=== PATIENT | female | born 1935 | race Caucasian/White ===

== ENCOUNTER 2018-05-11 21:33 | Inpatient (IN) | payer MEDICARE, OTHER ==
[2018-05-11 22:15] LABS: ADD MAN DIFF? NO
[2018-05-11 22:21] LABS: ABNORMAL IP MESSAGE 1; BASOPHILS % 0.2 % (0.0-2.0); HEMATOCRIT 34.2 % (37.0-47.0); HEMOGLOBIN 11.5 g/dl (12.0-16.0); LYMPHOCYTES # 0.6 10^3/ul (0.8-2.9); LYMPHOCYTES % 4.4 % (15.0-51.0); MEAN CORPUSCULAR HEMOGLOBIN 31.2 pg (29.0-33.0); MEAN CORPUSCULAR HGB CONC 33.6 g/dl (32.0-37.0); MEAN CORPUSCULAR VOLUME 92.7 fl (82.0-101.0); MEAN PLATELET VOLUME 9.7 fl (7.4-10.4); MONOCYTE # 0.4 10^3/ul (0.3-0.9); MONOCYTES % 3.1 % (0.0-11.0); NEUTROPHIL # 11.5 10^3/ul (1.6-7.5); NEUTROPHILS % 91.4 % (39.0-77.0); PLATELET COUNT 235 10^3/UL (140-415); RED BLOOD COUNT 3.69 10^6/ul (4.20-5.40); RED CELL DISTRIBUTION WIDTH 13.7 % (11.5-14.5)
[2018-05-11 22:21] LABS: WHITE BLOOD COUNT 12.6 10^3/ul (4.8-10.8)
[2018-05-11] MEDS ORDERED: ACETAMINOPHEN 325 MG TAB (22:26)
[2018-05-11 22:29] LABS: POSITIVE DIFF @See below
[2018-05-11] MEDS: ONDANSETRON 4 MG INJ IV (22:33)
[2018-05-11] MEDS: LACTATED RINGER'S 1,000 ML IV (22:34)
[2018-05-11] MEDS: ACETAMINOPHEN 325 MG TAB PO (22:37)
[2018-05-11 22:44] LABS: ALANINE AMINOTRANSFERASE 26 IU/L (13-69); ALBUMIN 3.5 g/dl (3.3-4.9); ALBUMIN/GLOBULIN RATIO 1.16; ALKALINE PHOSPHATASE 59 IU/L (42-121); ANION GAP 14 (8-16); ASPARTATE AMINO TRANSFERASE 28 IU/L (15-46); BLOOD UREA NITROGEN 17 mg/dl (7-20); CALCIUM 8.9 mg/dl (8.4-10.2); CARBON DIOXIDE 27 mmol/L (21-31); CHLORIDE 94 mmol/L (97-110); CREATININE 0.65 mg/dl (0.44-1.00); GLUCOSE 171 mg/dl (70-220); POTASSIUM 4.2 mmol/L (3.5-5.1); SODIUM 131 mmol/L (135-144); TOTAL PROTEIN 6.5 g/dl (6.1-8.1)
[2018-05-11 22:53] LABS: TROPONIN-I 0.029 ng/ml (0.000-0.120)
[2018-05-11 23:08] LABS: LACTIC ACID 3.3 mmol/L (0.5-2.0)
[2018-05-11] MEDS: SODIUM CHLORIDE 0.9% 1L BAG IV* (23:43)
[2018-05-11] MEDS: CEFEPIME 2GM/50 ML (PMX) 50 ML IVPB (23:45)
[2018-05-11] MEDS: VANCOMYCIN 1 GM (PMX) 250 ML IVPB (23:45)
[2018-05-12 00:17] LABS: LACTIC ACID 1.6 mmol/L (0.5-2.0)
[2018-05-12 00:41] LABS: ADD UMIC NO; UR ASCORBIC ACID NEGATIVE (NEGATIVE); UR BILIRUBIN (Dip) NEGATIVE (NEGATIVE); UR BLOOD (Dip) NEGATIVE (NEGATIVE); UR CLARITY CLEAR (CLEAR); UR COLOR YELLOW (YELLOW); UR GLUCOSE (Dip) NEGATIVE (NEGATIVE); UR KETONES (Dip) NEGATIVE (NEGATIVE); UR LEUKOCYTE ESTERASE (Dip) NEGATIVE Leu/ul (NEGATIVE); UR NITRITE (Dip) NEGATIVE (NEGATIVE); UR SPECIFIC GRAVITY (Dip) 1.015 (1.003-1.030); UR TOTAL PROTEIN (Dip) NEGATIVE (NEGATIVE); UR UROBILINOGEN (Dip) 2+ mg/dL (NEGATIVE)
[2018-05-12] MEDS ORDERED: NACL 0.9% 3 ML SYG IV (05:30)
[2018-05-12] MEDS ORDERED: VANCOMYCIN IV PER PHARMACY XX (05:30)
[2018-05-12] MEDS: HYDROCODONE/APAP (5/325) TAB PO ×2 (05:49→20:25)
[2018-05-12] MEDS: ALBUTEROL/IPRATROPIUM (NEB) 3 ML AMP HHN ×2 (06:11→21:08)
[2018-05-12 06:36] LABS: ADD MAN DIFF? NO
[2018-05-12 06:39] LABS: ABNORMAL IP MESSAGE 1; BASOPHILS % 0.3 % (0.0-2.0); HEMATOCRIT 30.8 % (37.0-47.0); HEMOGLOBIN 10.3 g/dl (12.0-16.0); LYMPHOCYTES # 0.5 10^3/ul (0.8-2.9); LYMPHOCYTES % 4.9 % (15.0-51.0); MEAN CORPUSCULAR HEMOGLOBIN 31.2 pg (29.0-33.0); MEAN CORPUSCULAR HGB CONC 33.4 g/dl (32.0-37.0); MEAN CORPUSCULAR VOLUME 93.3 fl (82.0-101.0); MEAN PLATELET VOLUME 9.8 fl (7.4-10.4); MONOCYTE # 0.3 10^3/ul (0.3-0.9); NEUTROPHIL # 9.5 10^3/ul (1.6-7.5); NEUTROPHILS % 90.2 % (39.0-77.0); PLATELET COUNT 221 10^3/UL (140-415); RED CELL DISTRIBUTION WIDTH 13.9 % (11.5-14.5)
[2018-05-12 06:39] LABS: WHITE BLOOD COUNT 10.5 10^3/ul (4.8-10.8)
[2018-05-12 06:44] LABS: POSITIVE DIFF @See below
[2018-05-12 06:48] LABS: AADO2 Arterial 67.3 mmHg (7.0-24.0); Allen Test ACCEPTAB; Arterial Base Excess 0.5 mmol/L (-3.0-3); Arterial Blood Gas Oxygen Sat 95.2 mmHG (95.0-100.0); Arterial COHb 0.3 % (0.0-3.0); Arterial Fraction of Oxyhgb 94.6 % (93.0-99.0); Arterial HCO3 25.2 mmol/L (22.0-26.0); Arterial MetHb 0.3 % (0.0-1.5); Arterial Total Hemglobin 10.9 g/dl (12.0-18.0); Arterial pCO2 41.2 mmhg (35-45); MODE NASAL CANNULA; Site Right Radial
[2018-05-12 07:04] LABS: LACTIC ACID 1.2 mmol/L (0.5-2.0)
[2018-05-12 07:14] LABS: ALANINE AMINOTRANSFERASE 23 IU/L (13-69); ALBUMIN 2.8 g/dl (3.3-4.9); ALBUMIN/GLOBULIN RATIO 1.16; ALKALINE PHOSPHATASE 51 IU/L (42-121); ANION GAP 13 (8-16); ASPARTATE AMINO TRANSFERASE 31 IU/L (15-46); BILIRUBIN,INDIRECT 0.7 mg/dl (0-1.1); BILIRUBIN,TOTAL 0.7 mg/dl (0.2-1.3); BLOOD UREA NITROGEN 15 mg/dl (7-20); CALCIUM 7.8 mg/dl (8.4-10.2); CARBON DIOXIDE 24 mmol/L (21-31); CHLORIDE 102 mmol/L (97-110); CREATININE 0.63 mg/dl (0.44-1.00); GLUCOSE 172 mg/dl (70-220); POTASSIUM 3.8 mmol/L (3.5-5.1); SODIUM 135 mmol/L (135-144); TOTAL PROTEIN 5.2 g/dl (6.1-8.1)
[2018-05-12 07:32] LABS: HEMOGLOBIN A1C 6.6 % (0-5.9)
[2018-05-12] MEDS: FUROSEMIDE 20 MG INJ IV (08:14)
[2018-05-12] MEDS: CEFEPIME 1GM/50 ML (PMX) 50 ML IVPB ×2 (08:14→20:25)
[2018-05-12] MEDS: ENOXAPARIN 40 MG/0.4 ML SYG SC (08:16)
[2018-05-12] MEDS: INSULIN ASPART [NOVOLOG] 3 ML PEN SC ×4 (08:20→20:34)
[2018-05-12] MEDS: VANCOMYCIN 2 GM in SOD CHLORIDE 0.9% 500 ML IVPB (11:00)
[2018-05-12] MEDS: SENNA TAB PO (20:26)
[2018-05-12] MEDS: INSULIN GLARGINE [LANTus] (100 UNITS/ML) SYG SC (20:33)
[2018-05-12] MEDS: ACCU-CHEK XX (20:34)
[2018-05-13 07:17] LABS: WHITE BLOOD COUNT 9.2 10^3/ul (4.8-10.8)
[2018-05-13 07:17] LABS: HEMATOCRIT 32.5 % (37.0-47.0); HEMOGLOBIN 10.6 g/dl (12.0-16.0); MEAN CORPUSCULAR HEMOGLOBIN 31.1 pg (29.0-33.0); MEAN CORPUSCULAR HGB CONC 32.6 g/dl (32.0-37.0); MEAN CORPUSCULAR VOLUME 95.3 fl (82.0-101.0); MEAN PLATELET VOLUME 10.2 fl (7.4-10.4); PLATELET COUNT 199 10^3/UL (140-415); RED BLOOD COUNT 3.41 10^6/ul (4.20-5.40); RED CELL DISTRIBUTION WIDTH 14.1 % (11.5-14.5)
[2018-05-13 07:20] LABS: ADD MAN DIFF? YES; POSITIVE DIFF @See below
[2018-05-13 07:56] LABS: ANION GAP 11 (8-16); BLOOD UREA NITROGEN 19 mg/dl (7-20); CALCIUM 8.1 mg/dl (8.4-10.2); CARBON DIOXIDE 26 mmol/L (21-31); CHLORIDE 103 mmol/L (97-110); GLUCOSE 122 mg/dl (70-220); MAGNESIUM 1.5 mg/dl (1.7-2.5); PHOSPHORUS 3.1 mg/dl (2.5-4.9); POTASSIUM 3.7 mmol/L (3.5-5.1); SODIUM 136 mmol/L (135-144)
[2018-05-13] MEDS: INSULIN ASPART [NOVOLOG] 3 ML PEN SC ×4 (08:35→21:00)
[2018-05-13 09:09] LABS: BAND NEUTROPHILS #M 2.8 10^3/ul (0.0-0.6); BAND NEUTROPHILS % (M) 31 % (0-4); GIANT THROMBO% (M) 3 % (0-0); LYMPHOCYTES #M 0.9 10^3/ul (0.8-2.9); LYMPHOCYTES % (M) 10 % (15-51); MONOCYTE #M 0.3 10^3/ul (0.3-0.9); MONOCYTES % (M) 4 % (0-11); PLATELET ESTIMATE NORMAL; POIKILOCYTOSIS 1+ (0-0); SEG NEUT #M 5.3 10^3/ul (1.6-7.5); SEGMENTED NEUTROPHILS (M) % 55 % (39-77); SMUDGE%M 7 % (0-0)
[2018-05-13] MEDS: FUROSEMIDE 20 MG INJ IV (10:01)
[2018-05-13] MEDS: CEFEPIME 1GM/50 ML (PMX) 50 ML IVPB ×2 (10:02→20:53)
[2018-05-13] MEDS: ENOXAPARIN 40 MG/0.4 ML SYG SC (10:39)
[2018-05-13] MEDS ORDERED: MAGNESIUM SULFATE (GM) 50% 2 ML INJ IM (11:00)
[2018-05-13] MEDS: VANCOMYCIN 2 GM in SOD CHLORIDE 0.9% 500 ML IVPB (11:41)
[2018-05-13] MEDS: CLINDAMYCIN 150 MG CAP PO ×3 (12:58→23:50)
[2018-05-13] MEDS: SENNA TAB PO ×2 (12:58→20:53)
[2018-05-13] MEDS: MAGNESIUM SULFATE 2 GM/50 ML 50 ML IVPB (18:01)
[2018-05-13] MEDS: ONDANSETRON 4 MG INJ IV (20:54)
[2018-05-13] MEDS: INSULIN GLARGINE [LANTus] (100 UNITS/ML) SYG SC (21:22)
[2018-05-13] MEDS: AL HYDROX/MG HYDROX/SIMETH 30 ML CUP PO (21:37)
[2018-05-14] MEDS: ACCU-CHEK XX (01:57)
[2018-05-14] MEDS: ACETAMINOPHEN 325 MG TAB PO ×2 (02:57→09:21)
[2018-05-14] MEDS: CLINDAMYCIN 150 MG CAP PO ×3 (05:27→18:31)
[2018-05-14] MEDS: AL HYDROX/MG HYDROX/SIMETH 30 ML CUP PO ×2 (06:20→11:16)
[2018-05-14 07:42] LABS: ADD MAN DIFF? NO
[2018-05-14 07:45] LABS: BASOPHILS % 0.1 % (0.0-2.0); EOSINOPHILS % 0.5 % (0.0-7.0); HEMATOCRIT 31.2 % (37.0-47.0); HEMOGLOBIN 10.4 g/dl (12.0-16.0); LYMPHOCYTES % 12.6 % (15.0-51.0); MEAN CORPUSCULAR HEMOGLOBIN 30.5 pg (29.0-33.0); MEAN CORPUSCULAR HGB CONC 33.3 g/dl (32.0-37.0); MEAN CORPUSCULAR VOLUME 91.5 fl (82.0-101.0); MEAN PLATELET VOLUME 10.4 fl (7.4-10.4); MONOCYTE # 0.4 10^3/ul (0.3-0.9); MONOCYTES % 5.4 % (0.0-11.0); NEUTROPHIL # 6.5 10^3/ul (1.6-7.5); NEUTROPHILS % 80.9 % (39.0-77.0); PLATELET COUNT 218 10^3/UL (140-415); RED BLOOD COUNT 3.41 10^6/ul (4.20-5.40); RED CELL DISTRIBUTION WIDTH 13.9 % (11.5-14.5)
[2018-05-14] MEDS: INSULIN ASPART [NOVOLOG] 3 ML PEN SC ×4 (08:00→21:00)
[2018-05-14 08:10] LABS: ANION GAP 8 (8-16); BLOOD UREA NITROGEN 12 mg/dl (7-20); CALCIUM 8.3 mg/dl (8.4-10.2); CARBON DIOXIDE 29 mmol/L (21-31); CHLORIDE 100 mmol/L (97-110); CREATININE 0.53 mg/dl (0.44-1.00); GLUCOSE 124 mg/dl (70-220); MAGNESIUM 1.8 mg/dl (1.7-2.5); PHOSPHORUS 2.1 mg/dl (2.5-4.9); POTASSIUM 3.3 mmol/L (3.5-5.1); SODIUM 134 mmol/L (135-144)
[2018-05-14] MEDS: CEFEPIME 1GM/50 ML (PMX) 50 ML IVPB (08:55)
[2018-05-14] MEDS: SENNA TAB PO ×2 (08:55→21:07)
[2018-05-14] MEDS: FUROSEMIDE 20 MG INJ IV (09:00)
[2018-05-14] MEDS: ENOXAPARIN 40 MG/0.4 ML SYG SC (09:03)
[2018-05-14] MEDS: VANCOMYCIN 2 GM in SOD CHLORIDE 0.9% 500 ML IVPB (11:16)
[2018-05-14] MEDS ORDERED: POTASSIUM CHLORIDE 20 MEQ POWDER FOR ORAL SOLN PO (12:00)
[2018-05-14] MEDS: NEUTRA-PHOS 250 MG PACKET PO ×3 (13:02→21:07)
[2018-05-14] MEDS: LEVOFLOXACIN 500MG/D5W (PMX) 100 ML IVPB (16:45)
[2018-05-14] MEDS: POTASSIUM CHLORIDE 20 MEQ POWDER FOR ORAL SOLN PO (16:55)
[2018-05-14] MEDS: AMLODIPINE 5 MG TAB PO (21:06)
[2018-05-14] MEDS: INSULIN GLARGINE [LANTus] (100 UNITS/ML) SYG SC (21:44)
[2018-05-15] MEDS: CLINDAMYCIN 150 MG CAP PO ×3 (01:11→12:08)
[2018-05-15] MEDS: ZOLPIDEM 5 MG TAB PO (01:12)
[2018-05-15] MEDS: ACCU-CHEK XX (02:00)
[2018-05-15] MEDS: ACETAMINOPHEN 325 MG TAB PO (05:41)
[2018-05-15 06:15] LABS: ADD MAN DIFF? NO
[2018-05-15 06:21] LABS: WHITE BLOOD COUNT 8.5 10^3/ul (4.8-10.8)
[2018-05-15 06:21] LABS: BASOPHILS % 0.1 % (0.0-2.0); EOSINOPHILS # 0.1 10^3/ul (0.0-0.5); EOSINOPHILS % 0.9 % (0.0-7.0); HEMOGLOBIN 10.4 g/dl (12.0-16.0); LYMPHOCYTES # 1.3 10^3/ul (0.8-2.9); LYMPHOCYTES % 15.5 % (15.0-51.0); MEAN CORPUSCULAR HGB CONC 33.5 g/dl (32.0-37.0); MEAN CORPUSCULAR VOLUME 92.5 fl (82.0-101.0); MEAN PLATELET VOLUME 9.9 fl (7.4-10.4); MONOCYTE # 0.6 10^3/ul (0.3-0.9); MONOCYTES % 6.6 % (0.0-11.0); NEUTROPHIL # 6.5 10^3/ul (1.6-7.5); NEUTROPHILS % 76.1 % (39.0-77.0); PLATELET COUNT 287 10^3/UL (140-415); RED BLOOD COUNT 3.35 10^6/ul (4.20-5.40); RED CELL DISTRIBUTION WIDTH 13.9 % (11.5-14.5)
[2018-05-15 06:50] LABS: ALANINE AMINOTRANSFERASE 36 IU/L (13-69); ALBUMIN/GLOBULIN RATIO 0.81; ALKALINE PHOSPHATASE 86 IU/L (42-121); ANION GAP 10 (8-16); ASPARTATE AMINO TRANSFERASE 38 IU/L (15-46); BILIRUBIN,INDIRECT 0.6 mg/dl (0-1.1); BILIRUBIN,TOTAL 0.6 mg/dl (0.2-1.3); BLOOD UREA NITROGEN 9 mg/dl (7-20); CALCIUM 8.5 mg/dl (8.4-10.2); CARBON DIOXIDE 32 mmol/L (21-31); CHLORIDE 99 mmol/L (97-110); GLUCOSE 92 mg/dl (70-220); MAGNESIUM 1.7 mg/dl (1.7-2.5); PHOSPHORUS 2.4 mg/dl (2.5-4.9); POTASSIUM 3.6 mmol/L (3.5-5.1); SODIUM 137 mmol/L (135-144); TOTAL PROTEIN 6.7 g/dl (6.1-8.1)
[2018-05-15] MEDS: INSULIN ASPART [NOVOLOG] 3 ML PEN SC ×4 (08:00→21:00)
[2018-05-15] MEDS: SENNA TAB PO ×2 (09:15→21:00)
[2018-05-15] MEDS: FUROSEMIDE 20 MG INJ IV (09:16)
[2018-05-15] MEDS: ENOXAPARIN 40 MG/0.4 ML SYG SC (11:08)
[2018-05-15] MEDS ORDERED: VANCOMYCIN IV PER PHARMACY XX (12:00)
[2018-05-15] MEDS: CEFEPIME 2GM/50 ML (PMX) 50 ML IVPB ×2 (14:00→21:24)
[2018-05-15] MEDS: VANCOMYCIN 1.25 GM in SOD CHLORIDE 0.9% 250 ML IVPB (16:00)
[2018-05-15] MEDS: INSULIN GLARGINE [LANTus] (100 UNITS/ML) SYG SC (21:30)
[2018-05-16] MEDS: ACCU-CHEK XX (01:18)
[2018-05-16] MEDS: VANCOMYCIN 1.25 GM in SOD CHLORIDE 0.9% 250 ML IVPB ×2 (03:43→17:21)
[2018-05-16] MEDS: INSULIN ASPART [NOVOLOG] 3 ML PEN SC ×4 (08:00→20:12)
[2018-05-16] MEDS: FUROSEMIDE 20 MG INJ IV (08:19)
[2018-05-16] MEDS: SENNA TAB PO ×2 (08:19→21:00)
[2018-05-16] MEDS: CEFEPIME 2GM/50 ML (PMX) 50 ML IVPB ×2 (08:35→21:11)
[2018-05-16] MEDS: ENOXAPARIN 40 MG/0.4 ML SYG SC (09:00)
[2018-05-16 09:04] LABS: ADD MAN DIFF? NO
[2018-05-16 09:08] LABS: WHITE BLOOD COUNT 8.1 10^3/ul (4.8-10.8)
[2018-05-16 09:08] LABS: BASOPHILS % 0.5 % (0.0-2.0); EOSINOPHILS # 0.1 10^3/ul (0.0-0.5); HEMATOCRIT 32.4 % (37.0-47.0); HEMOGLOBIN 10.5 g/dl (12.0-16.0); LYMPHOCYTES # 1.2 10^3/ul (0.8-2.9); LYMPHOCYTES % 15.1 % (15.0-51.0); MEAN CORPUSCULAR HEMOGLOBIN 30.3 pg (29.0-33.0); MEAN CORPUSCULAR HGB CONC 32.4 g/dl (32.0-37.0); MEAN CORPUSCULAR VOLUME 93.4 fl (82.0-101.0); MEAN PLATELET VOLUME 9.6 fl (7.4-10.4); MONOCYTE # 0.5 10^3/ul (0.3-0.9); MONOCYTES % 6.6 % (0.0-11.0); PLATELET COUNT 329 10^3/UL (140-415); RED BLOOD COUNT 3.47 10^6/ul (4.20-5.40); RED CELL DISTRIBUTION WIDTH 14.1 % (11.5-14.5)
[2018-05-16] MEDS: ACETAMINOPHEN 325 MG TAB PO (09:22)
[2018-05-16 09:41] LABS: ANION GAP 9 (8-16); BLOOD UREA NITROGEN 8 mg/dl (7-20); CALCIUM 8.5 mg/dl (8.4-10.2); CARBON DIOXIDE 32 mmol/L (21-31); CHLORIDE 98 mmol/L (97-110); CREATININE 0.52 mg/dl (0.44-1.00); GLUCOSE 112 mg/dl (70-220); MAGNESIUM 1.6 mg/dl (1.7-2.5); PHOSPHORUS 3.1 mg/dl (2.5-4.9); POTASSIUM 3.4 mmol/L (3.5-5.1); SODIUM 136 mmol/L (135-144)
[2018-05-16 14:48] LABS: HDL CHOLESTEROL 13 mg/dl (33-92); LDL CHOLESTEROL,CALCULATED 142 mg/dl; TRIGLYCERIDES 272 mg/dl (0-149)
[2018-05-16 14:48] LABS: CHOLESTEROL 209 mg/dl (100-200)
[2018-05-16] MEDS: MAGNESIUM SULFATE 2 GM/50 ML 50 ML IVPB (15:27)
[2018-05-16] MEDS: POTASSIUM CHLORIDE (SR) 20 MEQ TAB PO (15:28)
[2018-05-16] MEDS: BENAZEPRIL 5 MG TAB PO (15:33)
[2018-05-16] MEDS: INSULIN GLARGINE [LANTus] (100 UNITS/ML) SYG SC (20:10)
[2018-05-17] MEDS: ACCU-CHEK XX (02:00)
[2018-05-17] MEDS: VANCOMYCIN 1.25 GM in SOD CHLORIDE 0.9% 250 ML IVPB ×2 (03:56→17:13)
[2018-05-17 06:12] LABS: ABNORMAL IP MESSAGE 1; HEMATOCRIT 32.4 % (37.0-47.0); HEMOGLOBIN 10.7 g/dl (12.0-16.0); MEAN CORPUSCULAR HEMOGLOBIN 30.8 pg (29.0-33.0); MEAN CORPUSCULAR VOLUME 93.4 fl (82.0-101.0); MEAN PLATELET VOLUME 9.5 fl (7.4-10.4); PLATELET COUNT 370 10^3/UL (140-415); RED BLOOD COUNT 3.47 10^6/ul (4.20-5.40); RED CELL DISTRIBUTION WIDTH 14.3 % (11.5-14.5)
[2018-05-17 06:12] LABS: WHITE BLOOD COUNT 7.7 10^3/ul (4.8-10.8)
[2018-05-17 06:41] LABS: ANION GAP 13 (8-16); BLOOD UREA NITROGEN 10 mg/dl (7-20); CALCIUM 8.6 mg/dl (8.4-10.2); CARBON DIOXIDE 28 mmol/L (21-31); CHLORIDE 100 mmol/L (97-110); CREATININE 0.43 mg/dl (0.44-1.00); GLUCOSE 137 mg/dl (70-220); POTASSIUM 3.7 mmol/L (3.5-5.1); SODIUM 137 mmol/L (135-144)
[2018-05-17 06:44] LABS: MAGNESIUM 1.8 mg/dl (1.7-2.5)
[2018-05-17 06:44] LABS: PHOSPHORUS 3.9 mg/dl (2.5-4.9)
[2018-05-17 07:17] LABS: ADD MAN DIFF? YES; POSITIVE DIFF @See below
[2018-05-17] MEDS: INSULIN ASPART [NOVOLOG] 3 ML PEN SC ×4 (08:00→20:58)
[2018-05-17] MEDS: SENNA TAB PO ×2 (08:31→20:00)
[2018-05-17] MEDS: BENAZEPRIL 5 MG TAB PO (08:32)
[2018-05-17] MEDS: hydrALAzine 20 MG INJ IV (08:32)
[2018-05-17] MEDS: FUROSEMIDE 20 MG INJ IV (08:32)
[2018-05-17] MEDS: CEFEPIME 2GM/50 ML (PMX) 50 ML IVPB ×2 (08:34→20:59)
[2018-05-17] MEDS: ENOXAPARIN 40 MG/0.4 ML SYG SC (08:34)
[2018-05-17 09:22] LABS: BAND NEUTROPHILS #M 0.1 10^3/ul (0.0-0.6); BAND NEUTROPHILS % (M) 2 % (0-4); EOSINOPHILS % (M) 3 % (0-7); GIANT THROMBO% (M) 2 % (0-0); LYMPHOCYTES #M 1.6 10^3/ul (0.8-2.9); LYMPHOCYTES % (M) 22 % (15-51); MONOCYTE #M 0.3 10^3/ul (0.3-0.9); MONOCYTES % (M) 4 % (0-11); PLATELET ESTIMATE NORMAL; SEG NEUT #M 5.3 10^3/ul (1.6-7.5); SEGMENTED NEUTROPHILS (M) % 69 % (39-77); SMUDGE%M 8 % (0-0)
[2018-05-17] MEDS: INSULIN GLARGINE [LANTus] (100 UNITS/ML) SYG SC (20:03)
[2018-05-18] MEDS: ACCU-CHEK XX (01:40)
[2018-05-18] MEDS: hydrALAzine 20 MG INJ IV (01:47)
[2018-05-18 03:31] LABS: WHITE BLOOD COUNT 9.7 10^3/ul (4.8-10.8)
[2018-05-18 03:31] LABS: ABNORMAL IP MESSAGE 1; HEMATOCRIT 32.5 % (37.0-47.0); HEMOGLOBIN 10.8 g/dl (12.0-16.0); MEAN CORPUSCULAR HEMOGLOBIN 30.9 pg (29.0-33.0); MEAN CORPUSCULAR HGB CONC 33.2 g/dl (32.0-37.0); MEAN CORPUSCULAR VOLUME 93.1 fl (82.0-101.0); MEAN PLATELET VOLUME 9.3 fl (7.4-10.4); PLATELET COUNT 418 10^3/UL (140-415); RED BLOOD COUNT 3.49 10^6/ul (4.20-5.40); RED CELL DISTRIBUTION WIDTH 14.6 % (11.5-14.5)
[2018-05-18 03:33] LABS: POSITIVE DIFF @See below
[2018-05-18 03:34] LABS: ADD MAN DIFF? YES
[2018-05-18 03:48] LABS: ANION GAP 12 (8-16); BLOOD UREA NITROGEN 9 mg/dl (7-20); CALCIUM 8.9 mg/dl (8.4-10.2); CARBON DIOXIDE 29 mmol/L (21-31); CHLORIDE 100 mmol/L (97-110); CREATININE 0.54 mg/dl (0.44-1.00); GLUCOSE 157 mg/dl (70-220); MAGNESIUM 1.5 mg/dl (1.7-2.5); PHOSPHORUS 4.2 mg/dl (2.5-4.9); POTASSIUM 3.5 mmol/L (3.5-5.1); SODIUM 137 mmol/L (135-144)
[2018-05-18 03:53] LABS: VANCOMYCIN,TROUGH 14.5 ug/ml (10.0-20.0)
[2018-05-18] MEDS: VANCOMYCIN 1.25 GM in SOD CHLORIDE 0.9% 250 ML IVPB ×2 (04:06→15:44)
[2018-05-18 04:18] LABS: BAND NEUTROPHILS #M 0.1 10^3/ul (0.0-0.6); BAND NEUTROPHILS % (M) 2 % (0-4); LYMPHOCYTES #M 1.4 10^3/ul (0.8-2.9); LYMPHOCYTES % (M) 15 % (15-51); METAMYELOCYTES %M 1 % (0-0); MONOCYTE #M 0.3 10^3/ul (0.3-0.9); MONOCYTES % (M) 4 % (0-11); MYELOCYTES % (M) 1 % (0-0); PLATELET ESTIMATE NORMAL; SEG NEUT #M 7.5 10^3/ul (1.6-7.5); SEGMENTED NEUTROPHILS (M) % 77 % (39-77); SMUDGE%M 6 % (0-0)
[2018-05-18] MEDS: HYDROCODONE/APAP (5/325) TAB PO (05:25)
[2018-05-18] MEDS: SENNA TAB PO (08:53)
[2018-05-18] MEDS: FUROSEMIDE 20 MG INJ IV (08:54)
[2018-05-18] MEDS: BENAZEPRIL 5 MG TAB PO (08:54)
[2018-05-18] MEDS: CEFEPIME 2GM/50 ML (PMX) 50 ML IVPB (08:54)
[2018-05-18] MEDS: INSULIN ASPART [NOVOLOG] 3 ML PEN SC ×2 (09:06→12:00)
[2018-05-18] MEDS: ENOXAPARIN 40 MG/0.4 ML SYG SC (09:06)
[2018-05-18] MEDS: MAGNESIUM SULFATE 3 GM in DEXTROSE 5% 100 ML IVPB (11:27)
[2018-05-19 18:21] LABS: ANA SCREEN NEGATIVE (NEGATIVE)
== END 2018-05-18 15:58 | disposition home or self-care (01) | DRG 871 ==
LOC: E/R 21:33 → 2NE 05-12 00:28
DX: A41.9 Sepsis, unspecified organism (principal); J96.01 Acute respiratory failure with hypoxia; L03.116 Cellulitis of left lower limb; Z68.41 Body mass index [BMI] 40.0-44.9, adult; I50.30 Unspecified diastolic (congestive) heart failure; D63.8 Anemia in other chronic diseases classified elsewhere; E11.9 Type 2 diabetes mellitus without complications; E66.01 Morbid (severe) obesity due to excess calories; F17.200 Nicotine dependence, unspecified, uncomplicated; G47.33 Obstructive sleep apnea (adult) (pediatric); I11.0 Hypertensive heart disease with heart failure; R14.0 Abdominal distension (gaseous)
CPT/HCPCS: 36415; 36600; 71045; 73630-LT; 74018; 76700; 80048; 80053; 80061; 80202; 81003; 82306; 82652; 82803; 82962; 83036; 83605; 83735; 84100; 84484; 85025; 86038; 87040; 87086; 93005; 93306; 93971; 94640; 94664; 96361; 96365; 96368; 96375; 97110; 97116; 97161; 97530; 99291-25; G0378